=== PATIENT | female | born 1985 | race Caucasian/White ===

== ENCOUNTER 2022-08-06 15:15 | Emergency (ER) | payer OTHER ==
[2022-08-06 15:42] VITALS: BP 126/84; PULSE 90; RESP 18; TEMP 97.8; BMI 22.6
== END 2022-08-06 16:13 | disposition home or self-care (01) ==
LOC: FER 15:15
DX: R05.9 Cough, unspecified (principal); J98.8 Other specified respiratory disorders; Z20.822 Contact with and (suspected) exposure to COVID-19
CPT/HCPCS: 0241U-QW; 99283-25